=== PATIENT | female | born 1955 | race Caucasian/White ===

== ENCOUNTER → 2020-09-12 | Outpatient (CLI) | payer OTHER | LOC: US 09:45 → ECHO 11:00 → NM 13:00 | DX: R00.2 Palpitations (principal); R07.9 Chest pain, unspecified; I73.9 Peripheral vascular disease, unspecified | CPT/HCPCS: ECHO; 78452; 93017; 93306; 93925; A9502; J2785 ==

== ENCOUNTER → 2021-01-06 | Outpatient (CLI) | payer OTHER | LOC: KOH-I 10:30 | DX: M50.00 Cervical disc disorder with myelopathy, unspecified cervical region (principal); M47.812 Spondylosis without myelopathy or radiculopathy, cervical region | CPT/HCPCS: 72141 ==

== ENCOUNTER → 2021-01-29 | Outpatient (CLI) | payer OTHER | LOC: EXRD 08:30 | DX: M81.0 Age-related osteoporosis without current pathological fracture (principal) | CPT/HCPCS: 77080 ==

== ENCOUNTER → 2021-02-24 | Outpatient (CLI) | payer OTHER | LOC: KOH-I 09:31 | DX: M54.12 Radiculopathy, cervical region (principal); M50.31 Other cervical disc degeneration, high cervical region; M48.02 Spinal stenosis, cervical region | CPT/HCPCS: 72125 ==

== ENCOUNTER → 2021-03-26 | Outpatient (CLI) | payer OTHER | LOC: KOH-I 08:38 | DX: M43.24 Fusion of spine, thoracic region (principal); M54.14 Radiculopathy, thoracic region; M47.814 Spondylosis without myelopathy or radiculopathy, thoracic region | CPT/HCPCS: 72146 ==

== ENCOUNTER → 2021-05-29 | Outpatient (CLI) | payer OTHER | LOC: KOH-I 13:32 | DX: M43.26 Fusion of spine, lumbar region (principal) | CPT/HCPCS: 72128 ==

== ENCOUNTER → 2022-01-21 | Outpatient (CLI) | payer OTHER | LOC: HEART 5 07:46 | DX: R07.9 Chest pain, unspecified (principal); R00.2 Palpitations | CPT/HCPCS: 78452; A9502; J2785 ==

== ENCOUNTER → 2022-02-11 | Outpatient (CLI) | payer OTHER | LOC: EMI 14:41 | DX: M50.223 Other cervical disc displacement at C6-C7 level (principal); R13.19 Other dysphagia; M50.30 Other cervical disc degeneration, unspecified cervical region; M48.02 Spinal stenosis, cervical region | CPT/HCPCS: 72141 ==

== ENCOUNTER → 2022-04-06 | Outpatient (CLI) | payer OTHER ==
[~2022-04-06] MED LIST: ARTHRITIS PAIN50 GM TOP; HYDROCHLOROTHIA25 MG PO; HYDROCODON-ACE1 EAC6 PO; IBU800 MG PO; LEXAPRO20 MG PO; LIDOCAINE TD; NORVASC5 MG PO; OMEPRAZOLE20 MG PO; PROPRANOLOL HCL10 MG PO; PROVENTIL HFA6.7 GM INH; TYLENOL EXTRA500 MG PO; VITAMIN D21250 MCG PO
== END ==
LOC: OPSV2 11:32 → EDSTATUS 12:30 → OPSV2 12:30
DX: Z01.818 Encounter for other preprocedural examination (principal); M48.02 Spinal stenosis, cervical region; M54.12 Radiculopathy, cervical region; G95.9 Disease of spinal cord, unspecified; Z88.1 Allergy status to other antibiotic agents; R94.31 Abnormal electrocardiogram [ECG] [EKG]; R00.1 Bradycardia, unspecified
CPT/HCPCS: 71046; 81001; 83036; 87081; 87086; 93005

== ENCOUNTER → 2022-04-18 | Outpatient (CLI) | payer OTHER ==
[2022-04-18 13:35] LABS: BUN/CREATININE RATIO 21 (0-10)
== END ==
LOC: LAB 12:26
PROVIDERS: Orthopaedic Surgery
DX: Z01.812 Encounter for preprocedural laboratory examination (principal); M54.12 Radiculopathy, cervical region; M48.02 Spinal stenosis, cervical region; Z51.81 Encounter for therapeutic drug level monitoring
CPT/HCPCS: 80048; 85610; 85730; 86850; 86900; 86901

== ENCOUNTER → 2022-05-16 | Outpatient (CLI) | payer OTHER ==
[~2022-05-16] MED LIST changes: +LASIX20 MG PO; +LEVOCETIRIZINE D5 MG PO; +LIDOCAINE 5% TD; -LIDOCAINE TD
== END ==
LOC: LAB 11:45
PROVIDERS: Orthopaedic Surgery
DX: Z01.812 Encounter for preprocedural laboratory examination (principal)
CPT/HCPCS: 36415; 80048; 85610; 85730; 86850; 86900; 86901

== ENCOUNTER 2022-05-17 05:25 | Inpatient (IN) | payer OTHER ==
[~2022-05-17] VITALS: Ht 160 cm; Wt 107.5 kg
[~2022-05-17 05:25] MED LIST changes: -LASIX20 MG PO; -LEVOCETIRIZINE D5 MG PO
[2022-05-17] MEDS ORDERED: LASIX20 MG PO (06:40)
[2022-05-17] MEDS ORDERED: LEXAPRO20 MG PO (06:49)
[2022-05-17 13:38] LABS: HEMOGLOBIN 12.9 gm/dl (12.3-15.3); RED BLOOD COUNT 4.3 M/UL (4.00-5.10); WHITE BLOOD COUNT 11.1 K/UL (4.5-11.0)
[2022-05-17] MEDS ORDERED: LEVOCETIRIZINE D5 MG PO (17:39)
[2022-05-17] MEDS ORDERED: PROPRANOLOL HCL10 MG PO (17:41)
[2022-05-18 06:31] LABS: RED BLOOD COUNT 3.94 M/UL (4.00-5.10); WHITE BLOOD COUNT 13.4 K/UL (4.5-11.0)
[2022-05-18 07:03] LABS: BUN/CREATININE RATIO 16 (0-10)
[2022-05-19 05:28] LABS: HEMOGLOBIN 11.7 gm/dl (12.3-15.3); RED BLOOD COUNT 3.87 M/UL (4.00-5.10)
[2022-05-19 05:32] LABS: WHITE BLOOD COUNT 9.6 K/UL (4.5-11.0)
--- NOTE | 2022-05-19 07:54 | NUR ---
0752 DR DIAZ MADE AWARE OF POTASSIUM LEVEL 3.2 NO ORDERS RECEIVED.
[2022-05-19 18:43] LABS: HEMOGLOBIN 10.7 gm/dl (12.3-15.3); RED BLOOD COUNT 3.53 M/UL (4.00-5.10); WHITE BLOOD COUNT 10.1 K/UL (4.5-11.0)
[2022-05-19 19:00] LABS: BUN/CREATININE RATIO 15 (0-10)
[2022-05-20 04:27] LABS: HEMOGLOBIN 9.6 gm/dl (12.3-15.3)
[2022-05-20 04:49] LABS: RED BLOOD COUNT 3.09 M/UL (4.00-5.10); WHITE BLOOD COUNT 12.9 K/UL (4.5-11.0)
[2022-05-20 04:53] LABS: BUN/CREATININE RATIO 19 (0-10)
[2022-05-21 04:10] LABS: HEMOGLOBIN 9.4 gm/dl (12.3-15.3); RED BLOOD COUNT 3.13 M/UL (4.00-5.10); WHITE BLOOD COUNT 11.1 K/UL (4.5-11.0)
[2022-05-21 04:38] LABS: BUN/CREATININE RATIO 16 (0-10)
[2022-05-22 06:46] LABS: HEMOGLOBIN 8.8 gm/dl (12.3-15.3); RED BLOOD COUNT 2.89 M/UL (4.00-5.10); WHITE BLOOD COUNT 11.4 K/UL (4.5-11.0)
[2022-05-22 07:04] LABS: BUN/CREATININE RATIO 13 (0-10)
--- NOTE | 2022-05-23 04:05 | NUR ---
PT IS NONCOMPLIANT WITH USING CALL HERNANDEZ, ALERTING STAFF BEFORE AMBULATING, USING C-COLLAR OR WALKER. PT HAS BEEN TALKED TO MORE THAN ONCE TO GET HER TO UNDERSTAND THE IMPORTANCE OF STAFF AND ASSISTIVE DEVICES ESPECIALLY AFTER SUCH EXTENSIVE SPINAL SURGERIES. PT VERBALIZES UNDERSTANDING OF WHAT SHE NEEDS TO BE DOING VERSUS WHAT SHE HAS BEEN DOING ON HER OWN. BED ALARM WAS PLACED ON AND PT STILL CONTINUED TO UNPLUG HERSELF FROM THE MONITOR AND AMBULATE TO THE BATHROOM BEFORE STAFF COULD GET TO BEDSIDE. PT AWARE OF THE RISK SHE IS TAKING BY THIS BEHAVIOR AND VERBALIZES UNDERSTANDING OF THE HEALTH CONSEQUENCES THESE ACTIONS WILL CAUSE. STAFF TALKED TO PATIENT AGAIN AND SHE STATES THAT SHE WILL WAIT FOR HELP AND USE ASSTIVE DEVICES. AWARE.
[2022-05-23 06:14] LABS: RED BLOOD COUNT 2.94 M/UL (4.00-5.10)
[2022-05-23 06:31] LABS: BUN/CREATININE RATIO 14 (0-10)
[2022-05-24 05:19] LABS: HEMOGLOBIN 8.8 gm/dl (12.3-15.3); RED BLOOD COUNT 2.85 M/UL (4.00-5.10); WHITE BLOOD COUNT 9.9 K/UL (4.5-11.0)
[2022-05-24 06:04] LABS: BUN/CREATININE RATIO 13 (0-10)
[2022-05-25 05:08] LABS: HEMOGLOBIN 9.5 gm/dl (12.3-15.3); RED BLOOD COUNT 3.13 M/UL (4.00-5.10); WHITE BLOOD COUNT 9.3 K/UL (4.5-11.0)
[2022-05-25 05:44] LABS: BUN/CREATININE RATIO 14 (0-10)
[2022-05-26 05:02] LABS: HEMOGLOBIN 8.9 gm/dl (12.3-15.3); RED BLOOD COUNT 2.9 M/UL (4.00-5.10); WHITE BLOOD COUNT 10.4 K/UL (4.5-11.0)
[2022-05-26 05:19] LABS: BUN/CREATININE RATIO 14 (0-10)
--- NOTE | 2022-05-26 16:32 | NUR ---
LATE ENTRY, 05/26/2022 1500 SUPPLIES AT BEDSIDE FOR PROCEDURE PER DR. CHATMAN. DR. CHATMAN AT BEDSIDE TO DO CERIVAL INJECTIONS AT BEDSIDE PER PATIENT REQUEST/SHOULDER PAIN. PATIENT TOLERATED PROCEDURE WELL, CONSENT SIGNED AND ON THE PATIENTS CHART. VSS. PT DENIES ANY CONCERNS OR QUESTIONS AT THIS TIME. PATIENT SITTING UP IN THE BED ALERT AND ORIENTED WITH NO SIGNS OF ACUTE DISTRESS OR PAIN. PATIENT DENIES ANY NEEDS OR CONCERNS AT THIS TIME. CALL LIGHT WITHIN REACH. NADN. MEJIAS
[2022-05-27 06:49] LABS: HEMOGLOBIN 9.4 gm/dl (12.3-15.3); RED BLOOD COUNT 3.11 M/UL (4.00-5.10); WHITE BLOOD COUNT 10.7 K/UL (4.5-11.0)
[2022-05-27 07:03] LABS: BUN/CREATININE RATIO 16 (0-10)
[2022-05-27] MEDS ORDERED: ROXICODONE5 MG PO (07:28)
== END 2022-05-27 10:29 | disposition home or self-care (01) | DRG 29 ==
LOC: OR 05:25 → CCU 14:45 → OR 15:21 → CCU 15:21 → MED SURG 4 05-26 09:39
PROVIDERS: Internal Medicine; ADMIT Orthopaedic Surgery
PROC: 0RG20A0 Fusion of 2 or more Cervical Vertebral Joints with Interbody Fusion Device, Anterior Approach, Anterior Column, Open Approach (ICD-10-PCS; 2022-05-17)
PROC: 0RB30ZZ Excision of Cervical Vertebral Disc, Open Approach (ICD-10-PCS; 2022-05-17)
PROC: 00NW0ZZ Release Cervical Spinal Cord, Open Approach (ICD-10-PCS; 2022-05-17)
PROC: 4A11X4G Monitoring of Peripheral Nervous Electrical Activity, Intraoperative, External Approach (ICD-10-PCS; 2022-05-17)
PROC: 0RG2071 Fusion of 2 or more Cervical Vertebral Joints with Autologous Tissue Substitute, Posterior Approach, Posterior Column, Open Approach (ICD-10-PCS; 2022-05-19)
PROC: 0RG4071 Fusion of Cervicothoracic Vertebral Joint with Autologous Tissue Substitute, Posterior Approach, Posterior Column, Open Approach (ICD-10-PCS; 2022-05-19)
PROC: 0RG7071 Fusion of 2 to 7 Thoracic Vertebral Joints with Autologous Tissue Substitute, Posterior Approach, Posterior Column, Open Approach (ICD-10-PCS; 2022-05-19)
PROC: 01N10ZZ Release Cervical Nerve, Open Approach (ICD-10-PCS; 2022-05-19)
PROC: 01N80ZZ Release Thoracic Nerve, Open Approach (ICD-10-PCS; 2022-05-19)
PROC: 4A11X4G Monitoring of Peripheral Nervous Electrical Activity, Intraoperative, External Approach (ICD-10-PCS; 2022-05-19)
PROC: B24BZZZ Ultrasonography of Heart with Aorta (ICD-10-PCS; principal; 2022-05-23)
DX: M54.12 Radiculopathy, cervical region (principal); D62 Acute posthemorrhagic anemia; G95.89 Other specified diseases of spinal cord; Z20.822 Contact with and (suspected) exposure to COVID-19; E87.6 Hypokalemia; I10 Essential (primary) hypertension; K21.9 Gastro-esophageal reflux disease without esophagitis; F32.A Depression, unspecified; F41.9 Anxiety disorder, unspecified; R73.03 Prediabetes; M06.9 Rheumatoid arthritis, unspecified; I08.3 Combined rheumatic disorders of mitral, aortic and tricuspid valves; M48.02 Spinal stenosis, cervical region; G89.29 Other chronic pain; R74.01 Elevation of levels of liver transaminase levels; G47.33 Obstructive sleep apnea (adult) (pediatric); M53.2X2 Spinal instabilities, cervical region; E66.9 Obesity, unspecified; M75.52 Bursitis of left shoulder; M75.51 Bursitis of right shoulder; M81.0 Age-related osteoporosis without current pathological fracture; Z96.698 Presence of other orthopedic joint implants; R26.81 Unsteadiness on feet; Z90.710 Acquired absence of both cervix and uterus; Z90.49 Acquired absence of other specified parts of digestive tract; Z80.1 Family history of malignant neoplasm of trachea, bronchus and lung; Z82.49 Family history of ischemic heart disease and other diseases of the circulatory system; Z82.3 Family history of stroke; Z88.8 Allergy status to other drugs, medicaments and biological substances; Z86.711 Personal history of pulmonary embolism; Z79.01 Long term (current) use of anticoagulants; R06.89 Other abnormalities of breathing
CPT/HCPCS: ECHO; 36415; 36600; 71045; 72040; 72050; 72070; 73030; 76000; 80048; 80053; 82550; 82553; 82803; 83735; 84100; 84132; 84484; 85025; 85027; 92526; 92610; 93005; 93306; 94002; 94003; 94660; 94760; 97110; 97116; 97116-GP-CQ; 97161; 97164; 97166; 97168; 97530-GP-CQ; 97535; C1713; C1762; C9113; J0690; J1100; J1170; J1200; J1885; J2001; J2405; J2704; J3010; J3301; J3370; J3475; J7040; J7120; P9045